=== PATIENT | male | born 1965 ===

== ENCOUNTER 2019-01-13 16:00 | Inpatient (IN) ==
[2019-01-13] MEDS ORDERED: SODIUM CHLORIDE 0.9% 1,000 ML IV STA (16:25)
[2019-01-13] MEDS ORDERED: ZALEPLON 5 MG CAPSULE PO PRN (17:07)
[2019-01-13] MEDS ORDERED: MORPHINE 4 MG/1 ML VIAL IV PRN (17:07)
[2019-01-13] MEDS ORDERED: ONDANSETRON 4 MG/2 ML VIAL IV PRN (17:07)
[2019-01-13] MEDS ORDERED: GLUCAGON 1 MG VIAL IM PRN (18:33)
[2019-01-13] MEDS ORDERED: DEXTROSE 50% 25 GM/50 ML VIAL IV PRN (18:33)
[2019-01-13] MEDS: SUCRALFATE 1 GM TABLET PO SCH (18:37)
[2019-01-13] MEDS: SODIUM CHLORIDE 0.9% 1,000 ML IV SCH (18:41)
[2019-01-13] MEDS: INSULIN REGULAR 100 UNIT/ML SUBCUT SCH (21:18)
[2019-01-13] MEDS: GABAPENTIN 300 MG CAPSULE PO SCH (21:24)
[2019-01-13] MEDS: KETOCONAZOLE 2% CREAM 30 GM TUBE TOP SCH (21:24)
[2019-01-13] MEDS: CLOBETASOL 0.05% OINT 15 GM TUBE TOP SCH (21:25)
[2019-01-13] MEDS: BACITRACIN OINT 28.35 GM TUBE TOP SCH (21:25)
[2019-01-14] MEDS: SUCRALFATE 1 GM TABLET PO SCH ×5 (00:01→23:53)
[2019-01-14] MEDS: SODIUM CHLORIDE 0.9% 1,000 ML IV SCH ×4 (02:14→23:53)
[2019-01-14 07:29] LABS: Basophils # 0.1 10*3/uL (0.0-0.2); Basophils % 0.7 % (0.0-0.8); Eosinophils # 0.2 10*3/uL (0.0-0.87); Eosinophils % 2.1 % (0.00-10.9); Hematocrit 43.4 VOL% (42.0-52.0); Hemoglobin 14.5 GM/DL (14.0-18.0); Immature Granulocytes % 0.4 %; Immature Granulocytes Absolute 0.03 #; Lymphocytes # 3.1 10*3/uL (1.4-4.0); Lymphocytes % 37.5 % (21.2-54.2); Mean Corpuscular HGB Conc 33.4 GM/DL (32-36); Mean Corpuscular Volume 90.2 FL (87-102); Mean Platelet Volume 10.5 FL (9.6-12.0); Monocytes % 8.4 % (1.7-12.7); Neutrophils % 50.9 % (38.7-73.9); Platelet Count 172 T/CUMM (130-400); Red Blood Count 4.81 MC/CUMM (3.8-5.5); Red Cell Distribution Width 13.2 % (9.3-17.3); White Blood Count 8.2 T/CUMM (4-12)
[2019-01-14] MEDS: INSULIN REGULAR 100 UNIT/ML SUBCUT SCH ×4 (07:42→20:28)
[2019-01-14 07:52] LABS: Albumin 3.5 G/DL (3.4-5.0); Bilirubin,Total 1.1 MG/DL (0.2-1.0); Calcium 8.4 MG/DL (8.5-10.1); Osmolality,Calculated 282.3 MOS/KG (273-304); Total Protein 6.8 G/DL (6.4-8.3)
[2019-01-14] MEDS ORDERED: PANTOPRAZOLE 40 MG TABLET PO SCH (09:00)
[2019-01-14] MEDS ORDERED: LISINOPRIL 10 MG TABLET PO SCH (09:00)
[2019-01-14] MEDS ORDERED: SIMVASTATIN 20 MG TABLET PO SCH (09:00)
[2019-01-14] MEDS ORDERED: hydrALAZINE 20 MG/1 ML VIAL IV ONE (09:18)
[2019-01-14] MEDS ORDERED: hydrALAZINE 20 MG/1 ML VIAL ONE (09:36)
[2019-01-14] MEDS: ASPIRIN EC 81 MG TABLET PO SCH (09:43)
[2019-01-14] MEDS: MULTIVITAMIN (CENTRUM) TABLET PO SCH (09:44)
[2019-01-14] MEDS: LORATADINE 10 MG TABLET PO SCH (09:44)
[2019-01-14] MEDS: BACITRACIN OINT 28.35 GM TUBE TOP SCH ×2 (09:44→20:53)
[2019-01-14] MEDS: KETOCONAZOLE 2% CREAM 30 GM TUBE TOP SCH ×2 (09:46→20:53)
[2019-01-14] MEDS: CLOBETASOL 0.05% OINT 15 GM TUBE TOP SCH ×2 (09:47→20:53)
[2019-01-14] MEDS: GABAPENTIN 300 MG CAPSULE PO SCH (20:40)
[2019-01-14] MEDS: ENOXAPARIN 40 MG/0.4 ML SYRINGE SUBCUT SCH (20:40)
[2019-01-15 04:51] LABS: Basophils # 0.1 10*3/uL (0.0-0.2); Basophils % 0.6 % (0.0-0.8); Eosinophils # 0.2 10*3/uL (0.0-0.87); Eosinophils % 2.5 % (0.00-10.9); Hematocrit 41.9 VOL% (42.0-52.0); Hemoglobin 13.9 GM/DL (14.0-18.0); Immature Granulocytes % 0.1 %; Immature Granulocytes Absolute 0.01 #; Lymphocytes # 3.5 10*3/uL (1.4-4.0); Lymphocytes % 43.4 % (21.2-54.2); Mean Corpuscular HGB Conc 33.2 GM/DL (32-36); Mean Corpuscular Volume 91.1 FL (87-102); Mean Platelet Volume 10.9 FL (9.6-12.0); Monocytes % 8.6 % (1.7-12.7); Neutrophils % 44.8 % (38.7-73.9); Platelet Count 180 T/CUMM (130-400); Red Cell Distribution Width 13.2 % (9.3-17.3); White Blood Count 8.1 T/CUMM (4-12)
[2019-01-15 05:09] LABS: Albumin 3.4 G/DL (3.4-5.0); Bilirubin,Total 0.8 MG/DL (0.2-1.0); Calcium 6.1 MG/DL (8.5-10.1); Osmolality,Calculated 281.1 MOS/KG (273-304); Total Protein 6.6 G/DL (6.4-8.3)
[2019-01-15] MEDS: SUCRALFATE 1 GM TABLET PO SCH ×4 (05:13→23:12)
[2019-01-15 05:58] LABS: Risk Ratio 3.15
[2019-01-15] MEDS: SODIUM CHLORIDE 0.9% 1,000 ML IV SCH ×4 (06:28→17:36)
[2019-01-15] MEDS ORDERED: LACTULOSE 20 GM/30 ML UDCUP PO ONE (09:15)
[2019-01-15] MEDS ORDERED: POLYETHYLENE GLYCOL POWDER 17 GM PACK PO PRN (09:16)
[2019-01-15] MEDS: ASPIRIN EC 81 MG TABLET PO SCH (09:51)
[2019-01-15] MEDS: MULTIVITAMIN (CENTRUM) TABLET PO SCH (09:51)
[2019-01-15] MEDS: LORATADINE 10 MG TABLET PO SCH (09:51)
[2019-01-15] MEDS: amLODIPine 10 MG TABLET PO SCH (09:52)
[2019-01-15] MEDS: BACITRACIN OINT 28.35 GM TUBE TOP SCH ×2 (09:59→21:29)
[2019-01-15] MEDS: KETOCONAZOLE 2% CREAM 30 GM TUBE TOP SCH ×2 (09:59→21:29)
[2019-01-15] MEDS: CLOBETASOL 0.05% OINT 15 GM TUBE TOP SCH ×2 (09:59→21:29)
[2019-01-15] MEDS: INSULIN REGULAR 100 UNIT/ML SUBCUT SCH ×4 (10:00→21:01)
[2019-01-15] MEDS: GABAPENTIN 300 MG CAPSULE PO SCH (21:00)
[2019-01-15] MEDS: ENOXAPARIN 40 MG/0.4 ML SYRINGE SUBCUT SCH (21:01)
[2019-01-16] MEDS: SODIUM CHLORIDE 0.9% 1,000 ML IV SCH ×2 (02:06→09:44)
[2019-01-16] MEDS: SUCRALFATE 1 GM TABLET PO SCH ×2 (05:47→12:00)
[2019-01-16] MEDS: INSULIN REGULAR 100 UNIT/ML SUBCUT SCH ×3 (06:57→16:26)
[2019-01-16] MEDS: MULTIVITAMIN (CENTRUM) TABLET PO SCH (08:51)
[2019-01-16] MEDS: LORATADINE 10 MG TABLET PO SCH (08:51)
[2019-01-16] MEDS: ASPIRIN EC 81 MG TABLET PO SCH (08:51)
[2019-01-16] MEDS: amLODIPine 10 MG TABLET PO SCH (08:52)
[2019-01-16] MEDS: KETOCONAZOLE 2% CREAM 30 GM TUBE TOP SCH (08:53)
[2019-01-16] MEDS: CLOBETASOL 0.05% OINT 15 GM TUBE TOP SCH (08:53)
[2019-01-16] MEDS: BACITRACIN OINT 28.35 GM TUBE TOP SCH (08:53)
[2019-01-16] MEDS ORDERED: MAGNESIUM CITRATE 300 ML BOTTLE PO ONE (10:07)
[2019-01-16] MEDS ORDERED: BISACODYL 10 MG SUPP RECTAL ONE (13:59)
[2019-01-16 16:26] VITALS: BP 158/87
== END 2019-01-16 17:05 | disposition home or self-care (01) | DRG 440 ==
LOC: EDBD → EDUNIT# → N.ED 16:00 → N.EDINP 16:28 → INTOOBSV 17:07 → N.3E 17:54 → SUATTDRO 01-14 14:20
PROVIDERS: ADMIT Hospitalist; ATTEND Internal Medicine